=== PATIENT | female | born 1955 | race Caucasian/White ===

== ENCOUNTER 2023-09-02 05:45 | Day surgery (SDC) | payer MEDICARE, MEDICAID ==
[2023-08-25 11:17] LABS: ALBUMIN 3.7 G/DL (3.4-5.0); ALKALINE PHOSPHATASE 54 IU/L (46-116); BLOOD UREA NITROGEN 17 MG/DL (7-18); BUN/CREATININE RATIO 14.8 (10.0-20.0); CALCIUM 9.7 MG/DL (8.5-10.1); CHLORIDE 105 MMOL/L (99-107); CREATININE 1.15 MG/DL (0.40-0.90); PRE OP ALT 18 U/L (30-65); PRE OP ANION GAP 6 (8-16); PRE OP AST 12 U/L (10-37); PRE OP GLUCOSE 68 MG/DL (70-104); PRE OP POTASSIUM 4.1 MMOL/L (3.4-5.1); PRE OP SODIUM 141 MMOL/L (135-145); TOTAL PROTEIN 7.4 G/DL (6.4-8.2); eGFR 47 ML/MIN
[2023-08-25 11:21] LABS: BASOPHILS % (AUTO) 0.8 % (0-1); EOSINOPHILS # (AUTO) 0.1 X10'3 (0-0.9); EOSINOPHILS % (AUTO) 2.3 % (0-6); LYMPHOCYTES # (AUTO) 1.8 X10'3 (1.1-4.8); LYMPHOCYTES % (AUTO) 33.1 % (21-51); MEAN CORPUSCULAR HEMOGLOBIN 32.8 PG (27.0-31.0); MEAN CORPUSCULAR HGB CONC 33.4 g/dL (33.0-36.5); MEAN CORPUSCULAR VOLUME 98.2 FL (78-98); MEAN PLATELET VOLUME 8.4 FL (7.4-10.4); MONOCYTES # (AUTO) 0.3 X10'3 (0-0.9); MONOCYTES % (AUTO) 6.5 % (2-12); NEUTROPHILS # (AUTO) 3.1 X10'3 (1.8-7.7); NEUTROPHILS % (AUTO) 57.3 % (42-75); PRE OP HEMATOCRIT 44.8 % (35.0-45.0); PRE OP PLATELET COUNT 183 X10'3 (140-440); PRE OP WHITE BLOOD COUNT 5.3 10'3 (4.8-10.8); RED BLOOD COUNT 4.56 X10'6 (4.20-5.60); RED CELL DISTRIBUTION WIDTH 13.4 % (11.5-14.5)
[~2023-09-02] VITALS: Ht 170.2 cm; Wt 72.6 kg
[2023-09-02] VITALS (17 sets, daily range): BP systolic 90–119; BP diastolic 59–83; PULSE 56–74; RESP 11–17; TEMP 97.9; O2SAT 94–100
[~2023-09-02 05:45] MED LIST: HYDR-3965 PO
[2023-09-02] MEDS: famotidine 20mg tablet PO ONE (06:19)
[2023-09-02] MEDS: cefazolin 2gm/D5W 100mL 100 ML IV ONE (06:20)
[2023-09-02] MEDS: ringers solution, lacted 1,000 ML IV SCH (06:20)
[2023-09-02] MEDS ORDERED: methylene blue (5mg/ml) 50mg/10ml ampul IV ONE (06:56)
[2023-09-02] MEDS ORDERED: LIDOcaine 1% (10mg/ml)w/preservative inj. 20ml MDV ONE (06:57)
[2023-09-02] MEDS ORDERED: BUPIVAcaine/PF 2.5mg/ml (0.25%) 10ml vial ONE (06:57)
[2023-09-02] MEDS: LIDOCAINE 1% w/preservative (10 MG/ML) inj. 10mL VIAL IJ ONE (07:30)
[2023-09-02] MEDS ORDERED: sevoflurane 250ml liquid IH ONE (07:36)
[2023-09-02] MEDS ORDERED: midazolam 1 mg/ML 2ml injection ONE (07:39)
[2023-09-02] MEDS ORDERED: fentaNYL/PF 50MCG/1 ML 2ML syringe ONE (07:39)
[2023-09-02] MEDS ORDERED: morphine 2 MG/ML inj. syringe IV PRN (08:40)
[2023-09-02] MEDS ORDERED: meperidine/PF 25mg/ml syringe IV PRN ×2 (08:40)
[2023-09-02] MEDS ORDERED: morphine 4 MG/ML inj SYRINge IV PRN (08:40)
[2023-09-02] MEDS ORDERED: proCHLORperazine 10 MG/2 ml inj IV PRN (08:40)
[2023-09-02] MEDS ORDERED: ringers solution, lacted 1,000 ML IV SCH (08:40)
[2023-09-02] MEDS ORDERED: ondansetron/PF 4mg/2ml inj IV PRN (08:40)
[2023-09-02] MEDS ORDERED: propofol inj 20 ML IV ONE (08:48)
[2023-09-02] MEDS ORDERED: ondansetron/PF 4mg/2ml inj ONE (08:48)
[2023-09-02] MEDS ORDERED: dexamethasone sod phosphate 4mg/ml inj. ONE (08:48)
[2023-09-02] MEDS ORDERED: acetaminophen 1,000mg/100ml IV 100 ML IV ONE (08:49)
[2023-09-02] MEDS: meperidine/PF 25mg/ml syringe IV PRN (09:24)
== END 2023-09-02 11:53 | disposition home or self-care (01) ==
LOC: PAS 05:45
PROVIDERS: ATTEND Surgery
DX: C50.412 Malignant neoplasm of upper-outer quadrant of left female breast (principal); F41.9 Anxiety disorder, unspecified; F32.A Depression, unspecified; K21.9 Gastro-esophageal reflux disease without esophagitis; G47.33 Obstructive sleep apnea (adult) (pediatric); J45.909 Unspecified asthma, uncomplicated; Z87.891 Personal history of nicotine dependence; Z86.73 Personal history of transient ischemic attack (TIA), and cerebral infarction without residual deficits; Z87.440 Personal history of urinary (tract) infections; Z79.891 Long term (current) use of opiate analgesic; Z79.899 Other long term (current) drug therapy; Z88.2 Allergy status to sulfonamides
CPT/HCPCS: 19301; 36415; 38525; 38900; 76098; 80053; 82948; 85025; 93005; A4215; A4618; A6258; A6446; A7000; J0131; J0690; J1100; J2175; J2250; J2405; J2704; J3010; J3490; J7030; J7120; Q9968; Z7506; Z7508; Z7512; Z7610